=== PATIENT | male | born 1945 | race Caucasian/White ===

== ENCOUNTER 2018-09-08 19:41 | Inpatient (IN) | payer BC, MEDICARE ==
[~2018-09-08] VITALS: Ht 175.3 cm; Wt 130.4 kg
[~2018-09-08 19:41] MED LIST: ATOR40TA PO; BRIM5DRO3 EACHEYE; GLIM1TAB PO; LATA2.5D2 EACHEYE; MELO15TA24 PO; METF850T PO; METF850T10 PO
[2018-09-08 20:22] LABS: BASOPHILS # (AUTO) 0.03 x10^3/uL (0-0.1); BASOPHILS % (AUTO) 0 % (0-1); EOSINOPHILS # (AUTO) 0.08 x10^3/uL (0-0.4); EOSINOPHILS % (AUTO) 1 % (1-7); LYMPHOCYTES # (AUTO) 1.98 x10^3/uL (1-3.4); LYMPHOCYTES % (AUTO) 26 % (22-44); MD NO; MEAN CORPUSCULAR HEMOGLOBIN 30.7 pg (27.5-34.5); MEAN CORPUSCULAR HGB CONC 33.8 g/dL (33.2-36.2); MEAN CORPUSCULAR VOLUME 90.9 fL (81-97); MEAN PLATELET VOLUME 9.9 fL (7.4-10.4); MONOCYTES # (AUTO) 0.61 x10^3/uL (0.2-0.8); MONOCYTES % (AUTO) 8 % (2-9); NEUTROPHILS # (AUTO) 4.82 x10^3/uL (1.8-6.8); NEUTROPHILS % (AUTO) 64 % (42-75); PLATELET COUNT 124 x10^3/uL (130-400); RED BLOOD COUNT 5.21 x10^6/uL (4.38-5.82); RED CELL DISTRIBUTION WIDTH 14.9 % (9.4-14.8)
[2018-09-08 20:32] LABS: ANION GAP 9 mmol/L (5-15); CALCIUM 9.2 mg/dL (8.5-10.1); CHLORIDE 102 mmol/L (98-107); CREATININE 1.22 mg/dL (0.7-1.3)
[2018-09-08 20:33] LABS: ALANINE AMINOTRANSFERASE 64 U/L (12-78); ALBUMIN 3.3 g/dL (3.4-5.0)
[2018-09-08 20:37] LABS: ALKALINE PHOSPHATASE 118 U/L (45-117); BILIRUBIN,TOTAL 0.5 mg/dL (0.2-1.0); TOTAL PROTEIN 7.8 g/dL (6.4-8.2); TROPONIN I < 0.015 ng/mL (0.000-0.045)
[2018-09-08] MEDS ORDERED: TURM1POW PO (20:38)
[2018-09-08] MEDS ORDERED: DAPA10TA PO (20:38)
[2018-09-08] MEDS ORDERED: VIT1TABL34 PO (20:38)
[2018-09-08] MEDS ORDERED: GLUC1CAP48 PO (20:38)
[2018-09-08] MEDS ORDERED: CHOL500045 PO (20:38)
[2018-09-08] MEDS ORDERED: FLAXSEED OIL (20:38)
[2018-09-08] MEDS ORDERED: SITA1TBM7 PO (20:38)
[2018-09-08] MEDS ORDERED: [UNRECOGNIZED DRUG - CODE] PO (20:38)
[2018-09-08] MEDS ORDERED: OMEG1000 PO (20:38)
[2018-09-08] MEDS ORDERED: ESCI20TA PO (20:38)
[2018-09-08] MEDS ORDERED: LOSA25TA6 PO (20:38)
[2018-09-08] MEDS ORDERED: LEVO1CAP3 PO (20:38)
[2018-09-08] MEDS ORDERED: PLEASE ENTER HEIGHT AND WEIGHT MC SCH (21:30)
[2018-09-08] MEDS ORDERED: FUROSEMIDE 40 MG/4 ML IV ONE (21:30)
[2018-09-09] MEDS ORDERED: ACETAMINOPHEN 325 MG TABLET PO PRN (00:30)
[2018-09-09] MEDS ORDERED: GABAPENTIN 300 MG CAPSULE PO PRN (00:30)
[2018-09-09] MEDS ORDERED: hydrALAzine 20 MG/ML, 1ML IVPush PRN (00:30)
[2018-09-09] MEDS ORDERED: TEMAZEPAM 15 MG CAPSULE PO PRN (00:30)
[2018-09-09] MEDS: ENOXAPARIN 40 MG/0.4 ML SQ SCH (00:30)
[2018-09-09] MEDS ORDERED: ONDANSETRON ODT 4 MG PO PRN (00:30)
[2018-09-09] MEDS ORDERED: DOCUSATE 100 MG CAPSULE PO PRN (00:30)
[2018-09-09 01:22] VITALS: BP 120/75
[2018-09-09 02:00] VITALS: BP 120/75
[2018-09-09] MEDS: LATANOPROST OPHTH 0.005%, 2.5ML EACHEYE SCH (02:00)
[2018-09-09] MEDS: OXCARBAZEPINE 300MG TABLET PO SCH ×3 (02:00→21:31)
[2018-09-09] MEDS: ATORVASTATIN 40 MG TABLET PO SCH ×2 (02:00→21:31)
[2018-09-09] MEDS ORDERED: OXCARBAZEPINE 300MG TABLET PO ONE (02:02)
[2018-09-09] MEDS ORDERED: ATORVASTATIN 40 MG TABLET ONE (02:04)
[2018-09-09 05:18] LABS: ANION GAP 6 mmol/L (5-15); CALCIUM 9.3 mg/dL (8.5-10.1); CHLORIDE 102 mmol/L (98-107)
[2018-09-09 05:20] LABS: CREATININE 1.18 mg/dL (0.7-1.3)
[2018-09-09 07:23] VITALS: BP 124/76
[2018-09-09] MEDS ORDERED: metFORMIN XR 500 MG TAB.ER.24H PO SCH (08:00)
[2018-09-09] MEDS: CHOLECALCIFEROL 5,000u TAB PO SCH (08:15)
[2018-09-09] MEDS: MULTIVITAMIN 1 TABLET PO SCH (08:15)
[2018-09-09] MEDS: LOSARTAN 25MG TABLET PO SCH (08:16)
[2018-09-09] MEDS: FUROSEMIDE 40 MG/4 ML IV SCH ×2 (08:16→18:16)
[2018-09-09] MEDS: OMEGA-3/FISH OIL CAPSULE PO SCH (08:16)
[2018-09-09] MEDS ORDERED: TEMPLATE NON-FORMULARY MED. (Escitalopram Oxalate** 20 MG) HOMEMEDPO SCH (09:00)
[2018-09-09] MEDS ORDERED: TEMPLATE NON-FORMULARY MED. (Gluc 2KCL/Chondr/Coll Hy/Hy Ac** (Glucosamine & Chondroitin C PO SCH (09:00)
[2018-09-09] MEDS ORDERED: TEMPLATE NON-FORMULARY MED. (Sitagliptin Phos/Metformin Hcl (Janumet Xr 100-1,000 Mg Table PO SCH (09:00)
[2018-09-09] MEDS ORDERED: TEMPLATE NON-FORMULARY MED. (Levomefolate/B6/B12/Algal Oil** (Metanx Capsule**) 1 TAB) HOMEMEDPO SCH (09:00)
[2018-09-09] MEDS ORDERED: DAPAGLIFLOZIN PROPANEDIOL HOMEMEDPO SCH (09:00)
[2018-09-09] MEDS ORDERED: LINAGLIPTIN 5 MG TAB PO SCH (09:00)
[2018-09-09] MEDS ORDERED: OXCARBAZEPINE 300MG TABLET PO SCH (09:00)
[2018-09-09] MEDS ORDERED: TURMERIC 1 GM PO SCH (09:00)
[2018-09-09 13:20] LABS: HEMOGLOBIN A1C 8.7 % (4.2-6.3)
[2018-09-09 14:14] LABS: TROPONIN I < 0.015 ng/mL (0.000-0.045)
[2018-09-09 15:10] VITALS: BP 102/65
[2018-09-09 17:24] LABS: CLOSTRIDIUM DIFFICILE ANTIGEN NEGATIVE; CLOSTRIDIUM DIFFICILE TOXIN NEGATIVE (Negative)
[2018-09-09 18:17] VITALS: BP 100/63
[2018-09-09 20:06] LABS: TROPONIN I < 0.015 ng/mL (0.000-0.045)
[2018-09-09] MEDS ORDERED: LATANOPROST OPHTH 0.005%, 2.5ML EACHEYE SCH (21:00)
[2018-09-09] MEDS ORDERED: DORZOLAMIDE OPHTH 2%, 10ML EACHEYE SCH (21:00)
[2018-09-09] MEDS ORDERED: ATORVASTATIN 40 MG TABLET PO SCH (21:00)
[2018-09-09] MEDS: DORZOLAMIDE OPHTH 2%, 10ML EACHEYE SCH (21:32)
[2018-09-09 21:37] VITALS: BP 122/75
[2018-09-09] MEDS: DAPAGLIFLOZIN PROPANEDIOL HOMEMEDPO SCH (21:52)
[2018-09-09] MEDS: TEMPLATE NON-FORMULARY MED. (Levomefolate/B6/B12/Algal Oil** (Metanx Capsule**) 1 TAB) HOMEMEDPO SCH (21:53)
[2018-09-09] MEDS: TEMPLATE NON-FORMULARY MED. (Escitalopram Oxalate** 20 MG) HOMEMEDPO SCH (21:53)
[2018-09-09] MEDS: PRESERVISION HOMEMEDPO SCH (22:00)
[2018-09-10 01:22] VITALS: BP 113/65
[2018-09-10] MEDS: LATANOPROST OPHTH 0.005%, 2.5ML EACHEYE SCH ×2 (01:39→20:54)
[2018-09-10] MEDS: ENOXAPARIN 40 MG/0.4 ML SQ SCH (01:39)
[2018-09-10 05:30] LABS: BASOPHILS # (AUTO) 0.02 x10^3/uL (0-0.1); BASOPHILS % (AUTO) 0 % (0-1); EOSINOPHILS # (AUTO) 0.14 x10^3/uL (0-0.4); EOSINOPHILS % (AUTO) 2 % (1-7); LYMPHOCYTES # (AUTO) 1.79 x10^3/uL (1-3.4); LYMPHOCYTES % (AUTO) 26 % (22-44); MD NO; MEAN CORPUSCULAR HEMOGLOBIN 29.9 pg (27.5-34.5); MEAN CORPUSCULAR HGB CONC 32.6 g/dL (33.2-36.2); MEAN CORPUSCULAR VOLUME 91.5 fL (81-97); MONOCYTES # (AUTO) 0.66 x10^3/uL (0.2-0.8); MONOCYTES % (AUTO) 10 % (2-9); NEUTROPHILS # (AUTO) 4.37 x10^3/uL (1.8-6.8); NEUTROPHILS % (AUTO) 63 % (42-75); PLATELET COUNT 114 x10^3/uL (130-400); RED BLOOD COUNT 5.33 x10^6/uL (4.38-5.82); RED CELL DISTRIBUTION WIDTH 15.2 % (9.4-14.8)
[2018-09-10 05:35] LABS: ANION GAP 8 mmol/L (5-15); CALCIUM 8.7 mg/dL (8.5-10.1); CHLORIDE 101 mmol/L (98-107)
[2018-09-10] MEDS: DORZOLAMIDE OPHTH 2%, 10ML EACHEYE SCH ×2 (08:42→20:54)
[2018-09-10] MEDS: OMEGA-3/FISH OIL CAPSULE PO SCH (08:46)
[2018-09-10] MEDS: CHOLECALCIFEROL 5,000u TAB PO SCH (08:46)
[2018-09-10] MEDS: MULTIVITAMIN 1 TABLET PO SCH (08:46)
[2018-09-10] MEDS: OXCARBAZEPINE 300MG TABLET PO SCH ×2 (08:46→21:11)
[2018-09-10] MEDS: LOSARTAN 25MG TABLET PO SCH (08:46)
[2018-09-10] MEDS: FUROSEMIDE 40 MG/4 ML IV SCH ×2 (08:47→16:26)
[2018-09-10] MEDS: PRESERVISION HOMEMEDPO SCH ×2 (08:49→20:55)
[2018-09-10 08:51] VITALS: BP 117/68
[2018-09-10] MEDS: JANUMET HOMEMEDPO SCH (08:52)
[2018-09-10] MEDS ORDERED: OMNIPAQUE 350 MG/ML, 150 ML BOTTLE ONE (10:07)
[2018-09-10] MEDS: APIXABAN 5 MG TABLET PO SCH ×2 (10:38→21:11)
[2018-09-10 16:20] VITALS: BP 112/78
[2018-09-10 19:04] VITALS: BP 114/73
[2018-09-10] MEDS: TEMPLATE NON-FORMULARY MED. (Escitalopram Oxalate** 20 MG) HOMEMEDPO SCH (20:56)
[2018-09-10] MEDS: DAPAGLIFLOZIN PROPANEDIOL HOMEMEDPO SCH (20:56)
[2018-09-10] MEDS: TEMPLATE NON-FORMULARY MED. (Levomefolate/B6/B12/Algal Oil** (Metanx Capsule**) 1 TAB) HOMEMEDPO SCH (20:57)
[2018-09-10] MEDS: ATORVASTATIN 40 MG TABLET PO SCH (21:11)
[2018-09-11 01:47] VITALS: BP 127/79
[2018-09-11 05:50] LABS: BASOPHILS # (AUTO) 0.02 x10^3/uL (0-0.1); BASOPHILS % (AUTO) 0 % (0-1); EOSINOPHILS # (AUTO) 0.17 x10^3/uL (0-0.4); EOSINOPHILS % (AUTO) 2 % (1-7); LYMPHOCYTES # (AUTO) 1.87 x10^3/uL (1-3.4); LYMPHOCYTES % (AUTO) 23 % (22-44); MD NO; MEAN CORPUSCULAR HEMOGLOBIN 30.5 pg (27.5-34.5); MEAN CORPUSCULAR HGB CONC 33.1 g/dL (33.2-36.2); MEAN CORPUSCULAR VOLUME 92.2 fL (81-97); MEAN PLATELET VOLUME 9.3 fL (7.4-10.4); MONOCYTES # (AUTO) 0.72 x10^3/uL (0.2-0.8); MONOCYTES % (AUTO) 9 % (2-9); NEUTROPHILS # (AUTO) 5.32 x10^3/uL (1.8-6.8); NEUTROPHILS % (AUTO) 66 % (42-75); PLATELET COUNT 127 x10^3/uL (130-400); RED BLOOD COUNT 5.32 x10^6/uL (4.38-5.82); RED CELL DISTRIBUTION WIDTH 15.4 % (9.4-14.8)
[2018-09-11 06:00] LABS: ANION GAP 6 mmol/L (5-15); CALCIUM 9.5 mg/dL (8.5-10.1); CHLORIDE 98 mmol/L (98-107); CREATININE 1.15 mg/dL (0.7-1.3)
[2018-09-11 08:00] VITALS: BP 126/78
[2018-09-11] MEDS: DORZOLAMIDE OPHTH 2%, 10ML EACHEYE SCH ×3 (08:00→19:52)
[2018-09-11] MEDS ORDERED: REGADENOSON 0.4 MG/5 ML SYRINGE ONE (08:29)
[2018-09-11] MEDS: DAPAGLIFLOZIN PROPANEDIOL HOMEMEDPO SCH ×2 (09:00→11:03)
[2018-09-11] MEDS: APIXABAN 5 MG TABLET PO SCH ×3 (09:00→19:58)
[2018-09-11] MEDS: MULTIVITAMIN 1 TABLET PO SCH ×2 (09:00→11:02)
[2018-09-11] MEDS: CHOLECALCIFEROL 5,000u TAB PO SCH (09:00)
[2018-09-11] MEDS: PRESERVISION HOMEMEDPO SCH ×3 (09:00→19:53)
[2018-09-11] MEDS: JANUMET HOMEMEDPO SCH (09:00)
[2018-09-11] MEDS: OMEGA-3/FISH OIL CAPSULE PO SCH ×2 (09:00→11:02)
[2018-09-11] MEDS: OXCARBAZEPINE 300MG TABLET PO SCH ×2 (09:00→19:57)
[2018-09-11] MEDS: FUROSEMIDE 40 MG/4 ML IV SCH ×2 (09:00→11:00)
[2018-09-11] MEDS: TEMPLATE NON-FORMULARY MED. (Escitalopram Oxalate** 20 MG) HOMEMEDPO SCH ×2 (09:00→11:03)
[2018-09-11] MEDS: LOSARTAN 25MG TABLET PO SCH ×2 (09:00→11:02)
[2018-09-11] MEDS: TEMPLATE NON-FORMULARY MED. (Levomefolate/B6/B12/Algal Oil** (Metanx Capsule**) 1 TAB) HOMEMEDPO SCH ×3 (09:00→19:55)
[2018-09-11 14:00] VITALS: BP 110/61
[2018-09-11] MEDS: ATORVASTATIN 40 MG TABLET PO SCH (19:58)
[2018-09-11 21:53] VITALS: BP 103/68
[2018-09-11] MEDS: LATANOPROST OPHTH 0.005%, 2.5ML EACHEYE SCH (23:12)
[2018-09-12 02:19] VITALS: BP 105/68
[2018-09-12 05:29] LABS: ANION GAP 7 mmol/L (5-15); CALCIUM 9.6 mg/dL (8.5-10.1); CHLORIDE 96 mmol/L (98-107)
[2018-09-12 05:30] LABS: CREATININE 1.26 mg/dL (0.7-1.3)
[2018-09-12 07:42] VITALS: BP 115/69
[2018-09-12] MEDS: TEMPLATE NON-FORMULARY MED. (Levomefolate/B6/B12/Algal Oil** (Metanx Capsule**) 1 TAB) HOMEMEDPO SCH (09:00)
[2018-09-12] MEDS: DORZOLAMIDE OPHTH 2%, 10ML EACHEYE SCH (09:54)
[2018-09-12] MEDS: FUROSEMIDE 40 MG/4 ML IV SCH (09:54)
[2018-09-12] MEDS: LOSARTAN 25MG TABLET PO SCH (09:55)
[2018-09-12] MEDS: TEMPLATE NON-FORMULARY MED. (Escitalopram Oxalate** 20 MG) HOMEMEDPO SCH (09:56)
[2018-09-12] MEDS: APIXABAN 5 MG TABLET PO SCH (09:56)
[2018-09-12] MEDS: DAPAGLIFLOZIN PROPANEDIOL HOMEMEDPO SCH (09:56)
[2018-09-12] MEDS: MULTIVITAMIN 1 TABLET PO SCH (09:56)
[2018-09-12] MEDS: OMEGA-3/FISH OIL CAPSULE PO SCH (09:56)
[2018-09-12] MEDS: OXCARBAZEPINE 300MG TABLET PO SCH (09:57)
[2018-09-12] MEDS: CHOLECALCIFEROL 5,000u TAB PO SCH (09:57)
[2018-09-12] MEDS: PRESERVISION HOMEMEDPO SCH (09:58)
[2018-09-12] MEDS ORDERED: ATOR40TA78 PO (12:17)
[2018-09-12] MEDS ORDERED: FURO20TA3 PO (12:17)
[2018-09-12] MEDS ORDERED: APIX5TAB PO (12:17)
[2018-09-12 14:57] VITALS: BP 107/67
[2018-09-13] MEDS ORDERED: JANUMET HOMEMEDPO SCH (09:00)
== END 2018-09-12 17:45 | disposition home health service (06) | DRG 291 ==
LOC: ED 21:38 → EDIP 21:41 → 5SO 23:10
PROVIDERS: ADMIT Hospitalist; ATTEND Hospitalist
DX: I11.0 Hypertensive heart disease with heart failure (principal); I50.31 Acute diastolic (congestive) heart failure; Z68.41 Body mass index [BMI] 40.0-44.9, adult; I48.92 Unspecified atrial flutter; D68.69 Other thrombophilia; E78.5 Hyperlipidemia, unspecified; E66.01 Morbid (severe) obesity due to excess calories; E11.65 Type 2 diabetes mellitus with hyperglycemia; H40.9 Unspecified glaucoma; I27.20 Pulmonary hypertension, unspecified; R09.02 Hypoxemia; D69.6 Thrombocytopenia, unspecified; E11.43 Type 2 diabetes mellitus with diabetic autonomic (poly)neuropathy; I07.1 Rheumatic tricuspid insufficiency; R55 Syncope and collapse; G24.9 Dystonia, unspecified; I50.82 Biventricular heart failure; Z87.891 Personal history of nicotine dependence; Z91.81 History of falling
CPT/HCPCS: 36415; 70450; 71045; 71275; 78452; 80048; 80053; 82962; 83036; 83735; 83880; 84484; 85025; 87324; 93005; 93017; 93970; 96374; C8929; G0378; J1650; J1940; J2785; Q9957; Q9967; A9502; C9898

== ENCOUNTER → 2019-04-13 | Outpatient (CLI) | payer BC, MEDICARE ==
[~2019-04-13] MED LIST changes: +APIX5TAB PO; +ATOR40TA78 PO; +CHOL500045 PO; +DAPA10TA PO; +ESCI20TA PO; +FLAXSEED OIL; +FURO20TA3 PO; +GLUC1CAP48 PO; +LEVO1CAP3 PO; +LOSA25TA25 PO; +OMEG1000 PO; +SITA1TBM7 PO; +TURM1POW PO; +VIT1TABL34 PO; +[UNRECOGNIZED DRUG - CODE] PO
== END | disposition home or self-care (01) ==
LOC: CVU 09:29
PROVIDERS: ATTEND Internal Medicine Cardiovascular Disease
DX: I08.2 Rheumatic disorders of both aortic and tricuspid valves (principal); I48.91 Unspecified atrial fibrillation
CPT/HCPCS: 93306

== ENCOUNTER 2020-02-28 17:56 | Emergency (ER) | payer BC ==
[~2020-02-28] VITALS: Ht 175.3 cm; Wt 132.4 kg
--- NOTE | 2020-02-28 18:21 | NUR ---
CASH APPLICATIONS REPRESENTATIVE AT BEDSIDE FOR EKG, MD AT BEDSIDE FOR EVAL
[2020-02-28 18:42] LABS: BASOPHILS # (AUTO) 0.03 x10^3/uL (0-0.1); BASOPHILS % (AUTO) 0 % (0-1); EOSINOPHILS # (AUTO) 0.03 x10^3/uL (0-0.4); EOSINOPHILS % (AUTO) 0 % (1-7); LYMPHOCYTES # (AUTO) 2.01 x10^3/uL (1-3.4); LYMPHOCYTES % (AUTO) 20 % (22-44); MD NO; MEAN CORPUSCULAR HEMOGLOBIN 29.8 pg (27.5-34.5); MEAN CORPUSCULAR HGB CONC 32.6 g/dL (33.2-36.2); MEAN CORPUSCULAR VOLUME 91.4 fL (81-97); MEAN PLATELET VOLUME 9.9 fL (7.4-10.4); MONOCYTES # (AUTO) 0.81 x10^3/uL (0.2-0.8); MONOCYTES % (AUTO) 8 % (2-9); NEUTROPHILS # (AUTO) 7.32 x10^3/uL (1.8-6.8); NEUTROPHILS % (AUTO) 72 % (42-75); PLATELET COUNT 161 x10^3/uL (130-400); RED BLOOD COUNT 5.36 x10^6/uL (4.38-5.82); RED CELL DISTRIBUTION WIDTH 15.6 % (9.4-14.8)
--- NOTE | 2020-02-28 18:45 | NUR ---
PT TO CT
[2020-02-28 18:50] LABS: ALBUMIN 3.6 g/dL (3.4-5.0); ANION GAP 8 mmol/L (5-15); CALCIUM 9.6 mg/dL (8.5-10.1); CHLORIDE 101 mmol/L (98-107); CREATININE 1.26 mg/dL (0.7-1.3)
[2020-02-28] MEDS ORDERED: UBID100C41 PO (19:10)
[2020-02-28] MEDS ORDERED: OXCA300T44 PO (19:10)
[2020-02-28] MEDS ORDERED: RIVA10TA2 PO (19:10)
[2020-02-28] MEDS ORDERED: LEVO1CAP3 PO (19:10)
[2020-02-28] MEDS ORDERED: DORZ10DR27 OP (19:10)
--- NOTE | 2020-02-28 19:13 | NUR ---
ASSUMED CARE OF PT. PT RESTING ON GURNEY, SAFETY FALL PRECAUTIONS IN PLACE. VSS.
[2020-02-28] MEDS ORDERED: SODIUM CHLORIDE 0.9% 1,000ML IVBOLUS ONE (20:00)
[2020-02-28 20:25] VITALS: BP 141/84
--- NOTE | 2020-02-28 20:31 | NUR ---
ERP AT BEDSIDE FOR RE-EVAL.
== END 2020-02-28 21:05 | disposition home or self-care (01) ==
LOC: ED 20:52
DX: S00.93XA Contusion of unspecified part of head, initial encounter (principal); E11.9 Type 2 diabetes mellitus without complications; I48.92 Unspecified atrial flutter; I50.9 Heart failure, unspecified; M25.511 Pain in right shoulder; W18.30XA Fall on same level, unspecified, initial encounter; Y93.89 Activity, other specified; Y92.009 Unspecified place in unspecified non-institutional (private) residence as the place of occurrence of the external cause; Y99.8 Other external cause status
CPT/HCPCS: 36415; 70450; 80048; 82040; 85025; 93005; 99285; J7030

== ENCOUNTER 2020-10-29 18:00 | Inpatient (IN) | payer BC, MEDICARE ==
[~2020-10-29] VITALS: Ht 172.7 cm; Wt 141.6 kg
[~2020-10-29 18:00] MED LIST changes: +DORZ10DR27 OP; -ESCI20TA PO; +ESCI20TA5 PO; +OXCA300T44 PO; +RIVA10TA2 PO; +UBID100C41 PO
--- NOTE | 2020-10-29 18:00 | NUR ---
VENUS QUIÑONES from home-c/o lightheadedness, fell off the toilet this evening. Pt shows STEMI on EKG. Pt denies pain or SOB. Pt with hematoma to L forehead and dried blood in nares. Pt denies other injury. Pt placed in gown, positioned for comfort in bed. Continuous heart, oxygen and BP monitors applied, all safety measures observed. Dr. Garcia at bedside to evaluate pt.
--- NOTE | 2020-10-29 18:13 | NUR ---
Dr. Daugherty at bedside to evaluate pt.
[2020-10-29 18:21] LABS: BASOPHILS % (AUTO) 0 % (0-1); EOSINOPHILS % (AUTO) 0 % (1-7); LYMPHOCYTES % (AUTO) 7 % (22-44); MEAN CORPUSCULAR HEMOGLOBIN 30.7 pg (27.5-34.5); MEAN CORPUSCULAR HGB CONC 33.6 g/dL (33.2-36.2); MEAN PLATELET VOLUME 9.9 fL (7.4-10.4); MONOCYTES % (AUTO) 7 % (2-9); NEUTROPHILS % (AUTO) 86 % (42-75); PLATELET COUNT 102 x10^3/uL (130-400); RED BLOOD COUNT 5.29 x10^6/uL (4.38-5.82); RED CELL DISTRIBUTION WIDTH 17.1 % (9.4-14.8)
[2020-10-29] MEDS ORDERED: ONDANSETRON 2MG/ML, 2ML IVPush ONE (18:30)
[2020-10-29] MEDS ORDERED: SODIUM CHLORIDE 0.9% 1,000ML IVBOLUS ONE (18:30)
[2020-10-29 18:33] LABS: INTERNATIONAL NORMALIZED RATIO 1.27 (0.93-1.1); PROTHROMBIN TIME 13.4 Seconds (9.6-11.5)
--- NOTE | 2020-10-29 18:35 | NUR ---
Pt back from CT. No changes in condition. Pt's caregiver at bedside.
[2020-10-29 18:37] LABS: TROPONIN I 0.021 ng/mL (0.000-0.045)
--- NOTE | 2020-10-29 18:37 | NUR ---
IVF initiated per order. Pt reports he is not currently nauseated.
[2020-10-29 18:49] LABS: MD SCAN
--- NOTE | 2020-10-29 18:54 | NUR ---
BEDSIDE REPORT FROM DESTINEY RN. PT RESTING WITH NO NEEDS. STEAM SETTER AT BEDSIDE. CONSENT SIGNED. CALL LIGHT IN REACH
[2020-10-29 19:20] LABS: ALANINE AMINOTRANSFERASE 80 U/L (12-78); ALBUMIN 3.2 g/dL (3.4-5.0); ANION GAP 8 mmol/L (5-15); CALCIUM 9.6 mg/dL (8.5-10.1); CHLORIDE 103 mmol/L (98-107); CREATININE 1.96 mg/dL (0.7-1.3)
[2020-10-29 19:22] LABS: ALKALINE PHOSPHATASE 104 U/L (45-117); BILIRUBIN,TOTAL 0.7 mg/dL (0.2-1.0)
[2020-10-29] MEDS ORDERED: PHARMACY MAY ADJ FOR RENAL FX MC PRN (21:00)
[2020-10-29] MEDS ORDERED: MELATONIN 5 MG TABLET PO PRN (21:00)
[2020-10-29] MEDS ORDERED: hydrALAzine 20 MG/ML, 1ML IVPush PRN (21:00)
[2020-10-29] MEDS ORDERED: LATANOPROST OPHTH 0.005%, 2.5ML EACHEYE SCH (21:00)
[2020-10-29] MEDS ORDERED: morphine SULFATE 10 MG/ML, 1ML IV PRN (21:00)
[2020-10-29] MEDS ORDERED: ACETAMINOPHEN 325 MG TABLET PO PRN (21:00)
[2020-10-29] MEDS ORDERED: ATORVASTATIN 40 MG TABLET PO SCH (21:00)
[2020-10-29] MEDS ORDERED: ONDANSETRON 2MG/ML, 2ML IVPush PRN (21:00)
[2020-10-29 21:43] VITALS: BP 107/72
[2020-10-29] MEDS ORDERED: OXCARBAZEPINE 300MG TABLET PO ONE (22:41)
[2020-10-29] MEDS ORDERED: OXCA600T10 PO (22:45)
[2020-10-29] MEDS ORDERED: OXCARBAZEPINE 300MG TABLET PO SCH (23:00)
[2020-10-29] MEDS: INSULIN LISPRO 100 UNITS/ML, PEN SQ-INSULIN SCH (23:31)
[2020-10-29 23:38] LABS: MICROSCOPIC AUTO
[2020-10-30 00:57] LABS: TROPONIN I 0.032 ng/mL (0.000-0.045)
[2020-10-30 01:08] VITALS: BP 113/68
[2020-10-30] MEDS ORDERED: GLUCAGON 1 MG IM PRN (01:30)
[2020-10-30] MEDS ORDERED: DEXTROSE 50%, 50ML SYRINGE IVPush PRN (01:30)
[2020-10-30] MEDS ORDERED: DEXTROSE 4 GM TAB.CHEW PO PRN (01:30)
[2020-10-30] MEDS ORDERED: CHOL10003 PO (01:49)
[2020-10-30] MEDS ORDERED: RIVAROXABAN 15 MG TABLET PO SCH ×2 (02:30→09:00)
[2020-10-30] MEDS ORDERED: CHOLECALCIFEROL 5,000u TAB ONE ×2 (03:10→03:17)
[2020-10-30] MEDS: PIPERACILLIN/TAZO/PMX 3.375GM 50 ML IV SCH ×3 (03:13→14:30)
[2020-10-30] MEDS: INSULIN LISPRO 100 UNITS/ML, PEN SQ-INSULIN SCH ×2 (07:00→12:59)
[2020-10-30 07:18] LABS: BASOPHILS % (AUTO) 0 % (0-1); EOSINOPHILS % (AUTO) 0 % (1-7); LYMPHOCYTES % (AUTO) 12 % (22-44); MEAN CORPUSCULAR HEMOGLOBIN 30.7 pg (27.5-34.5); MEAN CORPUSCULAR HGB CONC 33.2 g/dL (33.2-36.2); MONOCYTES % (AUTO) 8 % (2-9); NEUTROPHILS % (AUTO) 80 % (42-75); PLATELET COUNT 100 x10^3/uL (130-400); RED BLOOD COUNT 5.12 x10^6/uL (4.38-5.82); RED CELL DISTRIBUTION WIDTH 16.6 % (9.4-14.8)
[2020-10-30 07:23] LABS: MD NO
[2020-10-30 07:29] LABS: ANION GAP 6 mmol/L (5-15); CALCIUM 9.7 mg/dL (8.5-10.1); CHLORIDE 104 mmol/L (98-107); CREATININE 1.31 mg/dL (0.7-1.3)
[2020-10-30 07:32] LABS: TROPONIN I 0.021 ng/mL (0.000-0.045)
[2020-10-30] MEDS ORDERED: CHOLECALCIFEROL 5,000u TAB PO SCH (09:00)
[2020-10-30] MEDS ORDERED: ESCITALOPRAM 10MG TABLET PO SCH (09:00)
[2020-10-30] MEDS ORDERED: RIVAROXABAN 10 MG TABLET PO SCH (09:00)
[2020-10-30] MEDS ORDERED: SODIUM CHLORIDE FLUSH 10ML SYR IVF SCH (09:00)
[2020-10-30] MEDS ORDERED: FUROSEMIDE 40 MG TABLET PO SCH (09:00)
[2020-10-30] MEDS ORDERED: LOSARTAN 25MG TABLET PO SCH (09:00)
[2020-10-30 09:59] VITALS: BP 107/71
[2020-10-30] MEDS ORDERED: HYDROcodone/APAP 5/325 TABLET PO ONE (14:00)
[2020-10-30] MEDS ORDERED: SULF1TAB24 PO (14:01)
[2020-10-30] MEDS ORDERED: HYDR-3237 PO (14:01)
[2020-10-30] MEDS ORDERED: CEPH-368 PO (14:01)
[2020-10-30] MEDS ORDERED: RIVAROXABAN 20 MG TABLET PO SCH (17:00)
== END 2020-10-30 15:20 | disposition home or self-care (01) | DRG 603 ==
LOC: MERGE 18:00 → EDBD 18:00 → EDSEX 18:00 → ED 18:27 → EDIP 20:20 → 5SO 21:00
PROVIDERS: ADMIT Family Medicine; ATTEND Internal Medicine
DX: L03.115 Cellulitis of right lower limb (principal); J96.10 Chronic respiratory failure, unspecified whether with hypoxia or hypercapnia; I50.22 Chronic systolic (congestive) heart failure; I48.20 Chronic atrial fibrillation, unspecified; N17.9 Acute kidney failure, unspecified; I13.0 Hypertensive heart and chronic kidney disease with heart failure and stage 1 through stage 4 chronic kidney disease, or unspecified chronic kidney disease; D68.69 Other thrombophilia; S09.90XA Unspecified injury of head, initial encounter; K52.9 Noninfective gastroenteritis and colitis, unspecified; I48.0 Paroxysmal atrial fibrillation; N18.9 Chronic kidney disease, unspecified; I27.20 Pulmonary hypertension, unspecified; E11.22 Type 2 diabetes mellitus with diabetic chronic kidney disease; E11.41 Type 2 diabetes mellitus with diabetic mononeuropathy; E86.0 Dehydration; G89.29 Other chronic pain; Z79.01 Long term (current) use of anticoagulants; Z87.891 Personal history of nicotine dependence
CPT/HCPCS: 36415; 70450; 71045; 74176; 80047; 80048; 80053; 81001; 82550; 82962; 83036; 83605; 83690; 83880; 84145; 84443; 84484; 85025; 85610; 85730; 87040; 87635; 93005; 93306; 93970; 99285; G0378; J2543; J1815; J7030

== ENCOUNTER → 2020-11-11 | Outpatient (CLI) | payer BC ==
[~2020-11-11] MED LIST changes: +CEPH-368 PO; +CHOL10003 PO; +HYDR-3237 PO; +OXCA600T10 PO; +SULF1TAB24 PO
== END | disposition home or self-care (01) ==
LOC: RAD 14:45
PROVIDERS: ATTEND Physician Assistant Surgical
DX: R60.0 Localized edema (principal); M25.471 Effusion, right ankle; M25.571 Pain in right ankle and joints of right foot

== ENCOUNTER 2021-05-05 17:57 | Inpatient (IN) | payer BC, MEDICARE ==
[~2021-05-05 17:57] MED LIST changes: -ESCI20TA5 PO; +ESCI20TA8 PO; +SULF-23 PO; -SULF1TAB24 PO
[2021-05-05] MEDS ORDERED: TRANEXAMIC ACID 100 MG/ML, 10ML ONE (18:18)
--- NOTE | 2021-05-05 18:41 | NUR ---
Late entry - multiple attempts made prior to successful insertion of OG tube secondary to upper airway swelling. After OG placement, pt's abdomen became notibly less distended and softened significantly. ED MD Rojo performed FAST US exam at bedside shortly after pt's arrival to r/o [facility].
[2021-05-05] MEDS ORDERED: ENALAPRILAT 1.25 MG/ML, 1ML ONE (18:56)
--- NOTE | 2021-05-05 18:58 | NUR ---
Per EMS/Family - pt was outside near pool, stood up to get into the pool and had a syncopal event. Pt's spouse is a physician, administered CPR immediately until EMS arrived. Per EMS, pt recieved 1 round of atropine and successful ROSC was achieved.
[2021-05-05] MEDS ORDERED: NITROGLYCERIN/D5W PMX 250 ML IV ONE ×2 (19:00→19:30)
[2021-05-05] MEDS ORDERED: HUM PROTHROMBIN CPLX IVPush ONE ×2 (19:00)
[2021-05-05] MEDS ORDERED: [UNRECOGNIZED DRUG - OTHER] IVPush ONE (19:00)
[2021-05-05] MEDS ORDERED: [UNRECOGNIZED DRUG - OTHER] IVPush ONE (19:00)
[2021-05-05] MEDS ORDERED: MIDAZOLAM HCL 50 MG in SODIUM CHLORIDE 0.9% 40 ML IV ONE (19:00)
[2021-05-05] MEDS ORDERED: EPINEPHRINE 5 MG in SODIUM CHLORIDE 0.9% 245 ML IV ONE (19:30)
[2021-05-05 19:37] LABS: BASOPHILS % (AUTO) 1 % (0-1); EOSINOPHILS % (AUTO) 2 % (1-7); LYMPHOCYTES % (AUTO) 41 % (22-44); MEAN CORPUSCULAR HEMOGLOBIN 30.4 pg (27.5-34.5); MEAN CORPUSCULAR HGB CONC 32.4 g/dL (33.2-36.2); MEAN PLATELET VOLUME 10.2 fL (7.4-10.4); MONOCYTES % (AUTO) 8 % (2-9); NEUTROPHILS % (AUTO) 50 % (42-75); PLATELET COUNT 192 x10^3/uL (130-400); RED CELL DISTRIBUTION WIDTH 16.3 % (9.4-14.8)
--- NOTE | 2021-05-05 19:44 | NUR ---
ASSUMED PATINET CARE AT THIS TIME: PT'S VITAL SIGNS ARE STABLE FOR PATIENT AT TIME OF EVALUATION. PATIENT IS RESPONDING TO MEDICATIONS WELL. FAMILY AT BEDSIDE DURING CHANGE OF SHIFT REPORTS. PATIENT TOLERATING INTERVENTIONS. VENT SETTINGS: PEEP 18, TIDAL VOLUME 350ML. PATIENT'S PULSE OX IS 75% ON 100% fio2. cO2 60. Addendum: 05/05/21 at 2302 by MARIANO Note entered by Nini Bosch under user name Luzmaria Dumas
[2021-05-05 19:45] LABS: ALANINE AMINOTRANSFERASE 37 U/L (12-78); ALBUMIN 3.5 g/dL (3.4-5.0); ANION GAP 11 mmol/L (5-15); CALCIUM 9.5 mg/dL (8.5-10.1); CHLORIDE 102 mmol/L (98-107); CREATININE 1.64 mg/dL (0.7-1.3)
--- NOTE | 2021-05-05 19:46 | NUR ---
PATIENT'S CURRENT MEDICATIONS CURRENTLY BEING ADMINISTERED TO PATIENT. PROPOFOL AT 5MCG/MIN/MIN NITROGLYCERIN AT 20 EPINEPHRINE AT 0.5 MCG/KG/MIN
--- NOTE | 2021-05-05 19:46 | NUR ---
FABIOLA DOAN AT BEDSIDE WITH PATIENT.
[2021-05-05 19:47] LABS: INTERNATIONAL NORMALIZED RATIO 1.39 (0.93-1.1); PROTHROMBIN TIME 14.6 Seconds (9.6-11.5)
[2021-05-05 19:50] LABS: ALKALINE PHOSPHATASE 123 U/L (45-117); BILIRUBIN,TOTAL 0.6 mg/dL (0.2-1.0); TROPONIN I < 0.015 ng/mL (0.000-0.045)
[2021-05-05] MEDS ORDERED: PANTOPRAZOLE 40 MG IV ONE (20:05)
--- NOTE | 2021-05-05 20:05 | NUR ---
PATIENT UNSTABLE, CAN NOT TAKE PATIENT TO CT TO COMPLETE CT HEAD. MD MORRIS AWARE.
--- NOTE | 2021-05-05 20:06 | NUR ---
CODE BLUE: SEE CODE SHEET FOR FURTHER CHARTING
[2021-05-05] MEDS ORDERED: EPINEPHRINE SYRINGE 0.1 MG/ML, 10ML ONE ×3 (20:11→23:50)
[2021-05-05] MEDS ORDERED: EPINEPHRINE 1 MG/ML, 1ML ONE (20:12)
--- NOTE | 2021-05-05 20:23 | NUR ---
AT BEDSIDE DISCUSSING PLAN OF CARE WITH
[2021-05-05] MEDS ORDERED: CALCIUM CHLORIDE 13.6 MEQ/10 ML ONE (20:34)
[2021-05-05] MEDS ORDERED: EPINEPHRINE 1 MG/ML, 30ML ONE (20:34)
[2021-05-05] MEDS ORDERED: VECURONIUM 10 MG ONE (20:34)
[2021-05-05] MEDS ORDERED: ATROPINE SYRINGE 0.1 MG/ML, 10ML ONE ×2 (20:34→23:50)
[2021-05-05] MEDS ORDERED: SODIUM BICARB 8.4%, 50ML SYRINGE ONE ×2 (20:34→23:50)
[2021-05-05] MEDS ORDERED: MIDAZOLAM 1 MG/ML, 5ML ONE (20:34)
[2021-05-05] MEDS ORDERED: FUROSEMIDE 40 MG/4 ML IV ONE (21:00)
[2021-05-05] MEDS ORDERED: PANTOPRAZOLE 40 MG IV IVPush SCH (21:00)
--- NOTE | 2021-05-05 21:07 | NUR ---
CODE BLUE: SEE CODE SHEET FOR FURTHER CHARTING
--- NOTE | 2021-05-05 21:15 | NUR ---
CODE BLUE: SEE CODE SHEET FOR FURTHER CHARTING
--- NOTE | 2021-05-05 21:15 | NUR ---
CODE BLUE: SEE CODE SHEET FOR FURTHER CHARTING
--- NOTE | 2021-05-05 21:20 | NUR ---
PULSE RETURNED AT 2118: SEE CODE SHEET FOR FURTHER DOCUMENTATION
--- NOTE | 2021-05-05 21:27 | NUR ---
TRANSCUTANOUS PACING TAKING PLACE @ 80
--- NOTE | 2021-05-05 21:30 | NUR ---
COLLECTIVE NOTE: 2126: TRANSCUTANOUS PACING INITATED. STARTED AT 100MAH, RATE 60 2129: ATROPINE GIVEN 2134: VITAL SIGNS IMPROVING WITH ATROPINE DOSAGE 2135: PADS REPOSITIONED ATTEMPTING TO RESTART AND IMPROVE PACING METHODS.
--- NOTE | 2021-05-05 21:36 | NUR ---
CODE BLUE: SEE CODE SHEET FOR FURTHER CHARTING
--- NOTE | 2021-05-05 21:50 | NUR ---
CODE BLUE: SEE CODE SHEET FOR FURTHER CHARTING
--- NOTE | 2021-05-05 22:01 | NUR ---
CODE BLUE: SEE CODE SHEET FOR FURTHER CHARTING
--- NOTE | 2021-05-05 22:12 | NUR ---
CODE BLUE: SEE CODE SHEET FOR FURTHER CHARTING
[2021-05-05 22:18] VITALS: BP 99/42
--- NOTE | 2021-05-05 22:19 | NUR ---
CODE BLUE: SEE CODE SHEET FOR FURTHER CHARTING
--- NOTE | 2021-05-05 22:23 | NUR ---
PULSE RETURNED, VFIB, SHOCK ADMIN, CPR RESUMED
--- NOTE | 2021-05-05 22:29 | NUR ---
CODE BLUE: SEE CODE SHEET FOR FURTHER CHARTING
[2021-05-05] MEDS ORDERED: DOPAMINE/D5W PMX 250 ML IV PRN (22:30)
--- NOTE | 2021-05-05 22:30 | NUR ---
MD MORRIS AT BEDSIDE WITH PATIENT AND PATIENT'S SPOUSE, KWADWO. UPDATED FAMILY ON CHANGE OF PATIENT'S STATUS AND COMPLICATIONS RELATED TO CONDITION. FAMILY VERBALIZES UNDERSTANDING, NO EVIDENCE OF LEARNING EXHIBITED BY SPOUSE AT THIS TIME. MD AND RN AT BEDSIDE WITH FAMILY DURING THIS CONVERSATION. SPOUSE LEFT ROOM TO CONSULT WITH FAMILY REGARDING DECISION MAKING.
--- NOTE | 2021-05-05 22:34 | NUR ---
SPOUSE AT BEDSIDE WITH PATIENT, , PRIMARY RN. SPOUSE, KWADWO, REQUESTED THAT ALL LIFE SAVING EFFORTS BE STOPPED. CPR STOPPED, EFFORTS DISCONTINUED. SEE CODE CHARTING FOR FURTHER INFORMATION.
--- NOTE | 2021-05-05 22:36 | NUR ---
TIME OF : 2235
--- NOTE | 2021-05-05 22:36 | NUR ---
AT BEDSIDE WITH PATIENT DURING TIME OF . , KWADWO, REQUESTED TO STOP CPR, INCLUDING FURTHER LIFE SAVING MEASURES. MD MORRIS, PRIMARY RN, AND HEALTHCARE FACILITY ADMINISTRATOR AT BEDSIDE.
--- NOTE | 2021-05-05 22:57 | NUR ---
donor services contacted: SPOKE WITH [facility]
[2021-05-05] MEDS ORDERED: EPINEPHRINE 10 MG in SODIUM CHLORIDE 0.9% 240 ML IV PRN (23:00)
--- NOTE | 2021-05-05 23:03 | NUR ---
Cummulative Entry Patient arrived to ED post cardiac arrest in the field. Per EMS, pt received CPR, atropine, and achieved ROSC. Almost immediately upon arrival to the ED pt became bradycardic and entered PEA. Over the course of the next 2 hours pt experienced multiple subsequent episodes of bradycardia followed by PEA despite appropriate medical interventions. See paper code sheet for medication, rhythm, and intervention details. Report given to oncoming RN, Nini Bosch at 1940. Patient's spouse (Lexa) at bedside throughout patient's stay in the ED. Pt's daughter Ileana also aware of POC. Multiple other family members also present and aware of POC.
--- NOTE | 2021-05-05 23:11 | NUR ---
CASE NUMBER WITH DONOR SERVICES # [id number]
[2021-05-05] MEDS ORDERED: TRANEXAMIC ACID 1,000 MG in SODIUM CHLORIDE 0.9% 100 ML IVPB ONE (23:30)
[2021-05-05] MEDS ORDERED: PROPOFOL 100 ML IV PRN (23:30)
[2021-05-05] MEDS ORDERED: AMIODARONE 50 MG/ML, 3ML ONE (23:50)
[2021-05-05] MEDS ORDERED: CALCIUM CHLORIDE 10%, 10ML SYR ONE (23:50)
--- NOTE | 2021-05-06 01:41 | NUR ---
CONTACTED [facility]: PATIENT WILL BE RELEASED TO [facility]MORTU[facility] PER FAMILY REQUEST.
--- NOTE | 2021-05-06 02:38 | NUR ---
PATIENT RELEASED TO [facility]. PAPERWORK COMPLETED AT BEDSIDE, HOUSE SUP AT BEDSIDE WITH RN AND MORTUARY STAFF. SIGN OFF COMPLETED.
== END 2021-05-06 02:43 | disposition expired | DRG 208 ==
LOC: EDBD → EDSEX → MERGE 17:57 → ED 20:30 → EDIP 22:08
PROVIDERS: ADMIT Internal Medicine; ATTEND Internal Medicine
PROC: 0BH17EZ Insertion of Endotracheal Airway into Trachea, Via Natural or Artificial Opening (ICD-10-PCS; principal; 2021-05-05)
PROC: 5A1935Z Respiratory Ventilation, Less than 24 Consecutive Hours (ICD-10-PCS; 2021-05-05)
PROC: 5A12012 Performance of Cardiac Output, Single, Manual (ICD-10-PCS; 2021-05-05)
DX: J18.9 Pneumonia, unspecified organism (principal); E11.9 Type 2 diabetes mellitus without complications; I11.0 Hypertensive heart disease with heart failure; I45.10 Unspecified right bundle-branch block; I46.2 Cardiac arrest due to underlying cardiac condition; I48.91 Unspecified atrial fibrillation; I50.9 Heart failure, unspecified
CPT/HCPCS: 36415; 36600; 71045; 80047; 80053; 82330; 82803; 82947; 83880; 84132; 84295; 84484; 85014; 85025; 85610; 85730; 86850; 86900; 92950; 93005; 94002; 99292; J0171; J0461; J2250; J2704; C9113; C9132; J0282; J7050